=== PATIENT | male | born 1980 | race American Indian/Alaskan Native ===

== ENCOUNTER 2024-11-01 08:13 | Outpatient (REF) | payer OTHER, SELFPAY ==
--- NOTE | ~2024-11-01 | XR_ITS ---
EXAMINATION: XR FOOT, RIGHT CLINICAL INFORMATION: S92.351A - Displaced fracture of fifth metatarsal bone, right foot, init... COMPARISON: None available. TECHNIQUE: AP, lateral, and oblique views of the right foot. FINDINGS: Dorsal dislocation of the 5th MTP joint. No definite fracture. There are 2 small rounded calcifications likely representing sesamoid bones. XR/XR foot RT min 3V IMPRESSION: Dorsal dislocation of the 5th MTP joint. No definite fracture. Electronically signed by: Varun Salguero MD 11/04/2024 08:06 AM MADIHA WADE
== END 2024-11-01 08:14 | disposition home or self-care (01) ==
LOC: HO.HOSX 08:13
PROVIDERS: Visit Provider Physician Assistant
DX: S92.424A Nondisplaced fracture of distal phalanx of right great toe, initial encounter for closed fracture (principal)
CPT/HCPCS: 28495; 73630; 99202; J0665; J2003

== ENCOUNTER 2024-11-01 08:23 | Outpatient (AMB) | payer OTHER, SELFPAY ==
--- NOTE | 2024-11-01 08:32 | MHC.OFFVIS ---
Vital Signs 11/01/24 08:43 Height 5 ft 8 in Weight 160 lb BMI 24.3 Intake Visit Reasons: WC-fx dist rt great toe/2nd lesser toe dislocation Intake Note: Cash a 44 year old male who presents today for an evaluation of right great toe, rt lesser toe dislocation, DOI 10/24/24. Patient reports that he was at work when a peice of heavy equipment fell on his foot. He was seen at [facility] where x-rays were taken and placed post op shoe. He has been out of work since injury. Currently he has intermittent throbbing pain in all of his toes, mostly his great toe. States his pain has been tolerable pain. Denies numbness or tingling. Allergies No Known Allergies Allergy (Verified 11/01/24 08:43) Medication List - Last Reconciled 11/01/24 by Markus Wyatt PA-C amlodipine 5 mg PO DAILY fluticasone propionate 50 mcg/actuation sprays intranasal ibuprofen 800 mg PO TID omeprazole 20 mg PO DAILY ropinirole 1 mg PO BEDTIME HPI HPI WC-fx dist rt great toe/2nd lesser toe dislocation: Details: 44-year-old male who presents to the office today for an evaluation of right great toe and right small toe injury, 10/24/24. He reports he was at work when a piece of heavy equipment fell on his foot. He was seen at [facility] where x-rays were performed and he was placed in a post-op shoe. He currently states he has intermittent throbbing pain in all of his toe that has been tolerable. He also reports his right small toe has been dislocated since the injury. He denies any numbness or tingling. He has been out of work since his DOI. [facility] Social History (Updated 11/01/24 @ 08:46 by DEYSI Hernandez) Patient Tobacco Use Status: Current everyday Tobacco user Current occupational status: employed Current occupation: [employer], Review of Systems Const All systems reviewed & are unremarkable except as noted in HPI and below Physical Exam Vital Signs: BMI result Body Mass Index 24.3 Const General: cooperative, healthy appearing, comfortable, no acute distress, well developed and alert Orientation/consciousness: patient oriented x3 HEENT Head: Yes normal to inspection, Yes normocephalic and Yes atraumatic Eyes General: appearance normal, both eyes and all related structures Resp Effort & Inspection: normal respiratory effort and able to speak in complete sentences Cardio Rate: regular rate Peripheral pulses: Peripheral pulses 2+ throughout GI Palpation (GI): Soft to palpation Skin Lesions: no lesions Rashes: no rashes Neuro General: patient oriented x3 Extrem Other: Right foot shows a small toe dislocation. NVI. Office Procedures AMB Fracture Care Fracture Billing Code: Fracture Billing Code Nerve Block Details: right small toe digital nerve block 2%lido/.25%bupivicaine 1:1 ml Procedure code (CPT) selection complete Results Reviewed Results Reviewed: Xrays were obtained in the office today and personally reviewed by me of the right foot show small toe dislocation , tuft fracture great toe Assessment & Plan Assessment & Plan (1) Dislocation of toe of right foot: Code(s): S93.104A - Unspecified dislocation of right toe(s), initial encounter Category: Medical Qualifiers: Encounter type: initial encounter Qualified Code(s): S93.104A - Unspecified dislocation of right toe(s), initial encounter (2) Toe fracture, right: Code(s): S92.911A - Unspecified fracture of right toe(s), initial encounter for closed fracture Category: Medical Qualifiers: Encounter type: initial encounter Fracture alignment: nondisplaced Fracture type: closed Phalanx: distal Toe: great toe Qualified Code(s): S92.424A - Nondisplaced fracture of distal phalanx of right great toe, initial encounter for closed fracture Plan Dr. Chaudhary was available to see the patient with me today. We attempted reduction which was unsuccessful. I explained to the patient the likelihood of this may be some ligamentous structures preventing the toe from being successfully reduced. We also discussed with Dr Cleaning plan for open reduction which he declined and recommended the patient to see a foot and ankle specialist. A stat referral to a foot and ankle specialist was placed in the office today. As this is workman comp I do not want to delay the treatment as this has been dislocated for approximately 8 days. I did explain to the patient that the referral was placed. He will remain out of work and proceed wtih follow-up care with a foot and ankle specialist. He is content with this plan. Orders: Orders XR foot RT min 3V Today S92.351A - Displaced fracture of fifth metatarsal bone, right foot, initial encounter for closed fracture Referrals Orthopedics Referral S92.424A - Nondisplaced fracture of distal phalanx of right great toe, initial encounter for closed fracture, S93.104A - Unspecified dislocation of right toe(s), initial encounter Patient Instructions: Scribed for Markus Wyatt PA-C, by Juan Foy biomedical engineering director, on 11/01/2024 at 8:45 AM EST.? I, Markus Wyatt PA-C, have personally reviewed and agree with the information entered by the scribe. Coding Level of Care Code New Pt Level 4 (89194) Complex EM visit Add On G2211 Diagnoses Dislocation of toe of right foot, initial encounter S93.104A Encounter type: initial encounter Closed nondisplaced fracture of distal phalanx of right great toe, initial encounter S92.424A Encounter type: initial encounter Fracture alignment: nondisplaced Fracture type: closed Phalanx: distal Toe: great toe CPT Codes Fracture Care - Fracture Billing Code: Fracture Billing Code ([id number])
[2024-11-01 08:43] VITALS: BMI 24.3
== END 2024-11-01 10:06 | disposition home or self-care (01) ==
PROVIDERS: Visit Provider Physician Assistant
DX: S92.424A Nondisplaced fracture of distal phalanx of right great toe, initial encounter for closed fracture (principal); S93.104A Unspecified dislocation of right toe(s), initial encounter; Z04.2 Encounter for examination and observation following work accident
CPT/HCPCS: 99204